=== PATIENT | male | born 1985 | race Two or more races ===

== ENCOUNTER 2022-09-22 11:19 | Inpatient (IN) | payer MEDICAID ==
[~2022-09-22] VITALS: Ht 180.3 cm; Wt 114.8 kg
[2022-09-22] MEDS ORDERED: ONDANSETRON HCL/PF 4 MG/2 ML VIAL IVP PRN (14:30)
[2022-09-22] MEDS ORDERED: MAG HYDROX/AL HYDROX/SIMETH 30 ML UDC PO PRN (14:30)
[2022-09-22] MEDS ORDERED: Z GUARD REMEDY 4 OZ OINT TP PRN (14:30)
[2022-09-22] MEDS ORDERED: MAGNESIUM HYDROXIDE 30 ML UDC PO PRN (14:30)
[2022-09-22] MEDS ORDERED: MORPHINE SULFATE INJ 2 MG/ML DISP.SYRIN IV PRN (14:30)
--- NOTE | 2022-09-22 14:50 | NUR ---
RN ADMITTING NOTES ADMITTED A 37 YR/ OLD MALE VIA GURNEY FROM [facility]. ADMITTING DIAGNOSIS IS CHOLECYSTITIS WITH CHOLELITHIASIS. A/O X 4. ON MODERATE HIGH BACK REST POSITION. BREATHING EVENLY AND UNLABORED. WITH IV ACCESS AT LEFT AC #20G SL. HISTORY TAKEN AND RECORDED, PHYSICAL EXAMINATION DONE, NO SKIN ISSUES. PATIENT ORIENTED TO THE UNIT POLICY, PATIENT HAS NO COVID 19 VACCINE. ON ROOM AIR SATURATING WELL. KEPT BED ON LOWER LOCKED POSITION, KEPT SIDE RAILS UP X 2 ALL THE TIME, KEPT CALL LIGHT WITHIN AT REACH, SAFETY PRECAUTIONS MAINTAIN, WILL CONTINUE TO MONITOR
--- NOTE | 2022-09-22 16:55 | NUR ---
RN NOTES PATIENT COMPLAINED OF RIGHT ABDOMINAL PAIN. RATE PAIN 8/10. PATIENT ASKED FOR PAIN MEDICINE. MORPHINE 1MG GIVEN. WILL CONTINUE TO MONITOR PATIENT.
[2022-09-22] MEDS ORDERED: PIPERACILLIN /TAZOBACTAM 4.5 G in IV D5W 50 ML IV SCH (18:00)
[2022-09-22] MEDS: IV D5/0.45 NACL 1,000 ML IV PRN ×2 (18:24→18:28)
[2022-09-22] MEDS: ZOSYN IVPB 3.375 G in IV D5W 50ml IV SCH ×2 (18:38→23:47)
--- NOTE | 2022-09-22 18:58 | NUR ---
RN CLOSING NOTES PATIENT AWAKE IN BED, A/O X 4. ON MODERATE HIGH BACK REST POSITION. BREATHING EVENLY AND UNLABORED. WITH IV ACCESS AT LEFT AC #20G WITH D5 1/2 NS @125ML/HR. ON ROOM AIR SATURATING WELL. NO COMPLAINT OF PAIN OR DISCOMFORT AT THIS TIME. KEPT BED ON LOWER LOCKED POSITION, KEPT SIDE RAILS UP X 2 ALL THE TIME, KEPT CALL LIGHT WITHIN REACH, SAFETY PRECAUTIONS MAINTAIN, WILL ENDORSE TO TELEPHONE INSTRUMENT SUPERVISOR NURSE FOR MATTHEW.
--- NOTE | 2022-09-22 19:40 | NUR ---
RN OPENING NOTE PATIENT AWAKE IN BED, A/O X 4. NO RESPIRATORY DISTRESS, BREATHING EVENLY AND UNLABORED. WITH IV ACCESS TO LEFT AC #20G WITH NS INFUSING @ 125ML/HR. ON ROOM AIR, TOLERATING RA WELL. NO COMPLAINT OF PAIN OR DISCOMFORT AT THIS TIME. SAFETY MEASURES MAINTAINED: BED IN LOWEST LOCKED POSITION, SIDE RAILS UP X 2, CALL LIGHT WITHIN REACH. WILL CONTINUE TO MONITOR PATIENT.
[2022-09-22 20:00] VITALS: BP 138/90
[2022-09-23 05:52] LABS: BASOPHILS % (AUTO) 0.2 % (0.0-2.0); EOSINOPHILS % (AUTO) 2.8 % (0.0-6.0); HEMATOCRIT 45 % (39-51); LYMPHOCYTES # (AUTO) 3.1 K/uL (0.8-4.8); LYMPHOCYTES % (AUTO) 39.5 % (20.0-44.0); MEAN CORPUSCULAR HGB CONC 33 g/dl (31.0-36.0); MEAN CORPUSCULAR VOLUME 88 fL (80-96); MONOCYTES # (AUTO) 0.9 K/uL (0.1-1.30); MONOCYTES % (AUTO) 11.9 % (2.0-12.0); NEUTROPHILS # (AUTO) 3.6 K/uL (1.8-8.9); NEUTROPHILS % (AUTO) 45.6 % (43.0-81.0); PLATELET COUNT (AUTO) 246 K/uL (150-450); RED BLOOD CELL COUNT(AUTO) 5.12 MIL/uL (4.5-6.0); WHITE BLOOD COUNT (AUTO) 7.9 K/uL (4.3-11.0)
[2022-09-23 06:11] LABS: ALBUMIN 3.4 g/dL (3.4-5.0); BILIRUBIN,TOTAL 0.7 mg/dL (0.2-1.0); CALCIUM, SERUM 8.8 mg/dL (8.5-10.1); PHOSPHORUS 3.8 mg/dL (2.5-4.9); POTASSIUM 3.6 mmol/L (3.5-5.1); TOTAL PROTEIN, SERUM 6.8 g/dL (6.4-8.2)
[2022-09-23] MEDS: ZOSYN IVPB 3.375 G in IV D5W 50ml IV SCH ×3 (06:27→17:35)
--- NOTE | 2022-09-23 06:40 | NUR ---
RN CLOSING NOTE LEFT PATIENT SLEEPING IN BED, A/O X 4. NO RESPIRATORY DISTRESS, BREATHING EVENLY AND UNLABORED. WITH IV ACCESS TO LEFT AC #20G WITH D5 1/2 NS INFUSING @ 125ML/HR. ON ROOM AIR, TOLERATING RA WELL. NO COMPLAINT OF PAIN OR DISCOMFORT AT THIS TIME. SAFETY MEASURES MAINTAINED: BED IN LOWEST LOCKED POSITION, SIDE RAILS UP X 2, CALL LIGHT WITHIN REACH. WILL ENDORSE PATIENT TO AM SHIFT NURSE FOR MATTHEW.
--- NOTE | 2022-09-23 07:30 | NUR ---
HEAT SET OPERATOR Opening Note Received patient on bed, awake, A/O x4. On RA. IV access LAC #20G. Safety measure maintained, bed in low, locked, siderails up x2, call light at reach. Will continue to monitor patient.
[2022-09-23 08:23] VITALS: BP 139/82
[2022-09-23] MEDS ORDERED: PANTOPRAZOLE 40 MG VIAL IV SCH (09:00)
[2022-09-23] MEDS: ACETAMINOPHEN 325 MG TABLET PO PRN (12:16)
[2022-09-23 16:10] VITALS: BP 118/81
--- NOTE | 2022-09-23 17:30 | NUR ---
RN NOTE Surgery consult done for patient, per JADEN العلي, patient doesn't want to get surgery and will just do dietary changes. Dr. Jacobson notified, he will discharge patient in AM.
--- NOTE | 2022-09-23 19:18 | NUR ---
HEAD GOLF PROFESSIONAL Closing Note Received patient on bed, awake, A/O x4. On RA. IV access LAC #20G. Safety measure maintained, bed in low, locked, side rails up x2, call light at reach. Will endorse to next shift nurse to monitor patient.
--- NOTE | 2022-09-23 19:56 | NUR ---
MS NEEDLE LOOM SETTER INITIAL NORES Received report from am nurse and seen patient in bed watching TV at this time and I introduce myself as his nurse for tonight . Denies any pain or any discomfort at this time. He still refusing to have operation at this time, he states he just watch his diet and do some exercise . He only request for now is to get him something to read like books or magazine because he doesn't like to watch TV. Heplock on his left AC patent and intact. Kept him warm and comfortable at all times. I also told him I will try if i can get him something to read and patient states "thank you ".
[2022-09-23 20:00] VITALS: BP 133/93
[2022-09-24] MEDS: ZOSYN IVPB 3.375 G in IV D5W 50ml IV SCH ×2 (00:12→06:24)
--- NOTE | 2022-09-24 07:20 | NUR ---
MS RN OPENING NOTE RECEIVED PATIENT AWAKE IN BED, A/O X 4. NO RESPIRATORY DISTRESS, BREATHING EVENLY AND UNLABORED. WITH IV ACCESS TO LEFT AC #20G ON SALINE LOCK, PATENT AND INTACT. ON ROOM AIR, TOLERATING RA WELL. NO COMPLAINT OF PAIN OR DISCOMFORT AT THIS TIME. ABLE TO TOLERATE DINNER LAST NIGHT ON CLEAR LIQUIDS. SAFETY MEASURES MAINTAINED: BED IN LOWEST LOCKED POSITION, SIDE RAILS UP X 2, CALL LIGHT WITHIN REACH. WILL CONTINUE WITH PLAN OF CARE.
--- NOTE | 2022-09-24 07:28 | NUR ---
MS DATA LEAD CLOSING NOTES PT WOKE UP AND STABLE THROUGHOUT THE NIGHT , DENIES ANY PAIN OR ANY DISCOMFORT. NO N/V WELL. ALL DUE MEDS GIVEN WELL. KEPT HIM WARM AND COMFORTABLE AT ALL TIMES. PLACE CALL LIGHT AT REACH. ENDORSE TO AM NURSE.
--- NOTE | 2022-09-24 08:30 | NUR ---
MS RN NOTE SEEN BY EVGENY BROWNE WITH ORDER FOR DISCHARGE. HEALTH TEACHING DONE REGARDING DISCHARGE ORDER AND DISCHARGE INSTRUCTIONS. AWAITING FINAL ORDERS FROM MD. WILL CONTINUE WITH PLAN OF CARE.
[2022-09-24] MEDS: ACETAMINOPHEN 325 MG TABLET PO PRN (08:59)
[2022-09-24] MEDS ORDERED: PANTOPRAZOLE 40 MG/PACK PACK PO SCH (09:00)
[2022-09-24] MEDS ORDERED: LEVO500T90 PO (11:18)
[2022-09-24] MEDS ORDERED: METR500T PO (11:18)
--- NOTE | 2022-09-24 12:00 | NUR ---
MS RN NOTE PATIENT DISCHARGED ORDERED. VERBALIZED UNDERSTANDING AND APPRECIATION. IV ACCESS REMOVED AND COVERED WITH DRY DRESSING, TOLERATED WELL. PATIENT REFUSED BODY CHECK AND TO BE WHEELED TO LOBBY. PATIENT DISCHARGED ORDERED. IN STABLE CONDITION.
== END 2022-09-24 12:00 | disposition home or self-care (01) ==
LOC: MED 14:23
PROVIDERS: ADMIT Internal Medicine; ATTEND Internal Medicine
DX: K80.10 Calculus of gallbladder with chronic cholecystitis without obstruction (principal); D72.829 Elevated white blood cell count, unspecified; E66.9 Obesity, unspecified; Z53.20 Procedure and treatment not carried out because of patient's decision for unspecified reasons; Z68.35 Body mass index [BMI] 35.0-35.9, adult
CPT/HCPCS: 36415; 71045-TC; 74181-TC; 80053-TC; 83735-TC; 84100-TC; 85025-TC; 87081-TC; A4223; C9113; G0378; J2270; J2543; J3490; J7060

== ENCOUNTER 2022-09-27 19:42 | Inpatient (IN) | payer MEDICAID ==
[~2022-09-27] VITALS: Ht 182.9 cm; Wt 114.8 kg
[~2022-09-27 19:42] MED LIST: LEVO500T90 PO; METR500T PO
--- NOTE | 2022-09-27 20:47 | NUR ---
BIBFAMILY FROM HOME C/O ABD PAIN X1 DAYS. D/C [facility] FOR GALLSTONES 2 DAYS AGO ON ATB PO FLAGYL & LEVOFLOXACIN. AMBULATORY, PLACED IN BED, AAOX4, IN PAIN 10/ PS
[2022-09-27] MEDS ORDERED: ONDANSETRON HCL/PF 4 MG/2 ML VIAL IVP ONE (21:00)
[2022-09-27] MEDS ORDERED: MORPHINE SULFATE INJ 2 MG/ML DISP.SYRIN IV ONE (21:00)
[2022-09-27] MEDS ORDERED: IV NS 0.9% 1,000 ML BAG IV ONE (21:00)
[2022-09-27] MEDS ORDERED: ONDANSETRON HCL/PF 4 MG/2 ML VIAL ONE (21:05)
[2022-09-27] MEDS ORDERED: MORPHINE SULFATE INJ 4 MG/ML DISP.SYRIN ONE (21:06)
--- NOTE | 2022-09-27 21:15 | NUR ---
BLOOD DRAWN AND SENT TO LAB
[2022-09-27 21:24] LABS: BASOPHILS # (AUTO) 0.1 K/uL (0.0-0.2); EOSINOPHILS % (AUTO) 1.6 % (0.0-6.0); HEMATOCRIT 48 % (39-51); HEMOGLOBIN 16.4 g/dL (13.5-17.5); LYMPHOCYTES # (AUTO) 3.4 K/uL (0.8-4.8); LYMPHOCYTES % (AUTO) 35.3 % (20.0-44.0); MEAN CORPUSCULAR HGB CONC 34 g/dl (31.0-36.0); MEAN CORPUSCULAR VOLUME 87 fL (80-96); MONOCYTES # (AUTO) 0.9 K/uL (0.1-1.30); MONOCYTES % (AUTO) 9.2 % (2.0-12.0); NEUTROPHILS % (AUTO) 52.9 % (43.0-81.0); PLATELET COUNT (AUTO) 323 K/uL (150-450); RED BLOOD CELL COUNT(AUTO) 5.49 MIL/uL (4.5-6.0); WHITE BLOOD COUNT (AUTO) 9.5 K/uL (4.3-11.0)
[2022-09-27 21:31] LABS: CALCIUM, SERUM 9.8 mg/dL (8.5-10.1); CREATININE 1.2 mg/dL (0.6-1.3); POTASSIUM 3.8 mmol/L (3.5-5.1)
--- NOTE | 2022-09-27 21:34 | NUR ---
Ml escamilla in [facility] - 09/27/22 at 2224 by DAMARIS [id number] SENT TO [facility]
[2022-09-27 21:37] LABS: ALBUMIN 4.3 g/dL (3.4-5.0); BILIRUBIN,DIRECT 0.1 mg/dL (0.0-0.2); BILIRUBIN,TOTAL 0.4 mg/dL (0.2-1.0); TOTAL PROTEIN, SERUM 8.2 g/dL (6.4-8.2)
[2022-09-27] MEDS ORDERED: HYDROMORPHONE 1 MG/1 ML DISP.SYRIN ONE (21:49)
[2022-09-27] MEDS ORDERED: HYDROMORPHONE 1 MG/1 ML DISP.SYRIN IV ONE (22:00)
--- NOTE | 2022-09-27 22:01 | NUR ---
EDY PINTO (SISTER)
--- NOTE | 2022-09-27 22:17 | NUR ---
COVID ANTIGEN AND MRSA SWAB COLLECTED AND SENT TO LAB.
[2022-09-27] MEDS ORDERED: ACETAMINOPHEN 325 MG TABLET PO PRN (23:30)
[2022-09-27] MEDS ORDERED: MAGNESIUM HYDROXIDE 30 ML UDC PO PRN (23:30)
[2022-09-27] MEDS ORDERED: ONDANSETRON HCL/PF 4 MG/2 ML VIAL IVP PRN (23:30)
[2022-09-27] MEDS ORDERED: Z GUARD REMEDY 4 OZ OINT TP PRN (23:30)
--- NOTE | 2022-09-27 23:32 | NUR ---
RM [id number]
--- NOTE | 2022-09-27 23:57 | NUR ---
CALLED FOR REPORT RN NOT AVAILABLE AND WILL CALL BACK
--- NOTE | 2022-09-28 00:02 | NUR ---
REPORT GIVEN TO AUDREY HUGHES FOR MATTHEW
--- NOTE | 2022-09-28 00:03 | NUR ---
URINE SAMPLE COLLECTED AND SENT TO LAB.
--- NOTE | 2022-09-28 00:13 | NUR ---
PT TRANSPORTED TO [facility] VIA WHEELCHAIR IN STABLE CONDITION
[2022-09-28 00:19] VITALS: BP 120/91
[2022-09-28] MEDS: IV D5/ 0.9% NACL 1,000 ML IV PRN ×2 (00:19→14:19)
--- NOTE | 2022-09-28 00:30 | NUR ---
MS BRANNER MACHINE TENDER NOTE PATIENT ARRIVED ON UNIT, ALERT/ORIENTED X 4, PT ABLE TO MAKE NEEDS KNOWN. PATIENT DENIES PAIN AT THIS TIME. PATIENT ADMITTED HER A COUPLE DAYS AGO FOR GALLSTONES BUT REFUSED SURGERY AT THAT TIME, NOW BACK WITH ABDOMINAL PAIN AND WANTING SURGERY. PATIENT STABLE ON RA, NO S/S OF DISTRESS OR SOB NOTED, BREATHING EVEN AND UNLABORED. IV ACCESS ON RAC #20G INTACT AND FLUSHING WELL, CONNECTED PATIENT TO IVF D5NS @ 75 ML/HR PER ORDER. NOTIFIED PATIENT HE'S NPO AND PT VERBALIZED UNDERSTANDING. BELONGINGS DOCUMENT AND SHEET PLACED IN CHART. PATIENT REFUSED TO CHANGE INTO HOSPITAL GOWN, WANTS TO STAY IN OWN CLOTHING. ORIENTED PATIENT TO ROOM AND HOW TO USE CALL LIGHT. PATIENT AMBULATORY WITH STEADY GAIT. SAFETY MEASURES IN PLACE: CALL LIGHT WITHIN REACH, SIDE RAILS UP X 2, BED LOCKED IN LOWEST POSITION. WILL CONTINUE TO MONITOR PATIENT
[2022-09-28 00:46] LABS: BILIRUBIN,URINE NEGATIVE (NEGATIVE); COLOR,URINE YELLOW (YELLOW); LEUKOCYTE ESTERASE ,URINE TRACE (NEGATIVE); NITRITE, URINE NEGATIVE (NEGATIVE); PH,URINE 5.5 (5.0-8.0); PROTEIN,URINE NEGATIVE (NEGATIVE); UGLUCOSE NEGATIVE (NEGATIVE); UROBILINOGEN,URINE 0.2 EU/dL (0.2)
[2022-09-28 01:12] LABS: BACTERIA,URINE None seen /HPF (None Seen); CALCIUM OXALATE CRYSTALS,UR Moderate /HPF (None Seen); RBC,URINE NONE SEEN /HPF (0-2); SQUAMOUS EPITHELIAL CELL,UR None Seen /HPF (None Seen); WBC,URINE 0-2 /HPF (0-3)
[2022-09-28 06:19] LABS: ALBUMIN 3.5 g/dL (3.4-5.0); BILIRUBIN,TOTAL 0.4 mg/dL (0.2-1.0); CALCIUM, SERUM 8.8 mg/dL (8.5-10.1); CREATININE 0.9 mg/dL (0.6-1.3); MAGNESIUM 2.3 mg/dL (1.8-2.4); PHOSPHORUS 3.6 mg/dL (2.5-4.9); POTASSIUM 3.7 mmol/L (3.5-5.1); TOTAL PROTEIN, SERUM 6.8 g/dL (6.4-8.2)
[2022-09-28 07:00] VITALS: BP 126/81
--- NOTE | 2022-09-28 07:05 | NUR ---
MS RN CLOSING NOTE PATIENT AWAKE IN BED, ALERT/ORIENTED X 4, PT ABLE TO MAKE NEEDS KNOWN. PATIENT STABLE ON RA, NO S/S OF DISTRESS OR SOB NOTED, BREATHING EVEN AND UNLABORED. PATIENT C/O OF HEADACHE, HOWEVER NPO SO CAN'T GIVE TYLENOL, PROVIDED PATIENT WITH ICE BAG FOR HEAD. IV ACCESS ON RAC #20G INTACT AND INFUSING D5NS @ 75 ML/HR. PATIENT NEEDS MET THROUGHOUT SHIFT. SAFETY MEASURES IN PLACE: CALL LIGHT WITHIN REACH, SIDE RAILS UP X 2, BED LOCKED IN LOWEST POSITION, WILL ENDORSE TO DAYSHIFT RN FOR CONTINUITY OF CARE
--- NOTE | 2022-09-28 07:23 | NUR ---
RN OPENING NOTE RECEIVED PATIENT IN BED, AWAKE, A/O X4, VERBALLY RESPONSIVE AND ABLE TO MAKE NEEDS KNOWN. NO SIGNS OF ACUTE DISTRESS NOTED. ON ROOM AIR, NO SOB NOTED, BREATHING EVEN AND UNLABORED. NOTED WITH RIGHT AC #20G, INTACT AND PATENT, SALINE LOCKED. PATIENT ON NPO AT THIS TIME. SAFETY MEASURE IN PLACE. BED IN LOW AND LOCKED POSITION. SIDE RAILS UP X2, CALL LIGHT PLACED WITHIN EASY REACH. WILL CONTINUE TO MONITOR PATIENT. Addendum: 09/28/22 at 0945 by BRYAN AHUJA RN *PATIENT WITH IV FLUIDS OF D5NS INFUSING @75ML/HR.
[2022-09-28] MEDS: MORPHINE SULFATE INJ 2 MG/ML DISP.SYRIN IV PRN (08:22)
[2022-09-28] MEDS ORDERED: PANTOPRAZOLE 40 MG VIAL IV SCH (09:00)
[2022-09-28] MEDS: ZOSYN IVPB 3.375 G in IV D5W 50ml IV SCH ×3 (11:43→23:28)
--- NOTE | 2022-09-28 12:45 | NUR ---
RN NOTE SEEN AND EXAMINED BY REHABILITATION CASEWORKER GEORGE GRAY FOR SX CONSULT.
[2022-09-28 16:00] VITALS: BP 126/75
--- NOTE | 2022-09-28 18:54 | NUR ---
RN CLOSING NOTE PATIENT IN BED, AWAKE, A/O X4, VERBALLY RESPONSIVE AND ABLE TO MAKE NEEDS KNOWN. NO SIGNS OF ACUTE DISTRESS NOTED. REMAINS STABLE ON ROOM AIR, NO SOB NOTED, BREATHING EVEN AND UNLABORED. WITH RIGHT AC #20G, INTACT AND PATENT, PATIENT REQUESTED TO HOLD IVF FOR NOW. PATIENT ABLE TO EAT DINNER WITH NO C/O ABDOMINAL PAIN. SAFETY MEASURE MAINTAINED. BED IN LOW AND LOCKED POSITION. SIDE RAILS UP X2, CALL LIGHT PLACED WITHIN EASY REACH. WILL ENDORSE TO NEXT SHIFT FOR CONTINUITY OF CARE.
--- NOTE | 2022-09-28 19:30 | NUR ---
MS RN OPENING NOTE RECEIVED PATIENT FROM AM NURSE; PATIENT AWAKE IN BED, A/O X 4, ABLE TO MAKE NEEDS KNOWN; STABLE ON ROOM AIR, BREATHING EVENLY AND NO S/S OF DISTRESS NOTED; WITH IV ACCESS AT RIGHT AC G#20, INTACT AND PATENT, PATIENT REQUESTED TO HOLD IV FLUIDS; ENCOURAGED VERBALIZATION OF NEEDS; SAFETY MEASURES IMPLEMENTED, BED LOCKED IN LOWEST POSITION, SIDE RAILS UP X 2, CALL LIGHT AND TABLE WITHIN REACH; WILL CONTINUE TO MONITOR THROUGHOUT SHIFT
[2022-09-28 20:00] VITALS: BP 137/90
[2022-09-29] MEDS: ZOSYN IVPB 3.375 G in IV D5W 50ml IV SCH ×3 (05:54→18:06)
[2022-09-29 06:15] LABS: BASOPHILS % (AUTO) 0.3 % (0.0-2.0); EOSINOPHILS % (AUTO) 2.8 % (0.0-6.0); HEMATOCRIT 45 % (39-51); HEMOGLOBIN 15.2 g/dL (13.5-17.5); LYMPHOCYTES # (AUTO) 2.5 K/uL (0.8-4.8); LYMPHOCYTES % (AUTO) 32.1 % (20.0-44.0); MEAN CORPUSCULAR HGB CONC 34 g/dl (31.0-36.0); MEAN CORPUSCULAR VOLUME 88 fL (80-96); MONOCYTES # (AUTO) 0.7 K/uL (0.1-1.30); MONOCYTES % (AUTO) 8.5 % (2.0-12.0); NEUTROPHILS # (AUTO) 4.4 K/uL (1.8-8.9); NEUTROPHILS % (AUTO) 56.3 % (43.0-81.0); PLATELET COUNT (AUTO) 252 K/uL (150-450); RED BLOOD CELL COUNT(AUTO) 5.11 MIL/uL (4.5-6.0); WHITE BLOOD COUNT (AUTO) 7.8 K/uL (4.3-11.0)
[2022-09-29 06:34] LABS: CALCIUM, SERUM 9.1 mg/dL (8.5-10.1); CREATININE 0.9 mg/dL (0.6-1.3); POTASSIUM 3.9 mmol/L (3.5-5.1)
--- NOTE | 2022-09-29 06:53 | NUR ---
MS RN CLOSING NOTE PATIENT AWAKE IN BED, A/O X 4, ABLE TO MAKE NEEDS KNOWN; STABLE ON ROOM AIR, BREATHING EVENLY AND NO S/S OF DISTRESS NOTED; WITH IV ACCESS AT RIGHT AC G#20, INTACT AND PATENT, PATIENT REFUSED TO HOOK IV FLUIDS; ADMINISTERED MEDICATIONS PRESCRIBED; PATIENT'S NEEDS ATTENDED; MONITORED PATIENT ACCORDINGLY; SAFETY MEASURES IMPLEMENTED, BED LOCKED IN LOWEST POSITION, SIDE RAILS UP X 2, CALL LIGHT AND TABLE WITHIN REACH; WILL ENDORSE TO AM NURSE FOR MATTHEW.
--- NOTE | 2022-09-29 07:45 | NUR ---
MS RN OPENING NOTE RECEIVED PATIENT AWAKE IN BED, A/O X 4, ABLE TO MAKE NEEDS KNOWN; STABLE ON ROOM AIR, BREATHING EVENLY AND NO S/S OF DISTRESS NOTED; WITH IV ACCESS AT RIGHT AC G#20, INTACT AND PATENT, PATIENT REQUESTED TO HOLD IV FLUIDS, ENCOURAGED VERBALIZATION OF NEEDS; SAFETY MEASURES IMPLEMENTED, BED LOCKED IN LOWEST POSITION, SIDE RAILS UP X 2, CALL LIGHT AND TABLE WITHIN REACH; WILL CONTINUE TO MONITOR PATIENT THROUGHOUT SHIFT.
[2022-09-29 08:00] VITALS: BP 130/80
--- NOTE | 2022-09-29 08:00 | NUR ---
RN NOTE PATIENT REQUESTED TO HOLD IV FLUIDS. REFUSED IV FLUIDS AT THIS TIME. WILL CONTINUE TO MONITOR PATIENT.
[2022-09-29] MEDS: PANTOPRAZOLE 40 MG TABLET.DR PO SCH (08:27)
--- NOTE | 2022-09-29 15:53 | NUR ---
RN NOTE PATIENT COMPLAINED OF LOWER BACK PAIN. RATE PAIN 3/10. TYLENOL 650MG GIVEN. WILL CONTINUE TO MONITOR PATIENT.
[2022-09-29 17:42] VITALS: BP 139/99
--- NOTE | 2022-09-29 17:56 | NUR ---
RN NOTES PATIENT COMPLAINED OF FEELING NAUSEOUS AND ASKED FOR MEDICINE. ZOFRAN 4MG PRN GIVEN. WILL CONTINUE TO MONITOR PATIENT.
[2022-09-29] MEDS: MORPHINE SULFATE INJ 2 MG/ML DISP.SYRIN IV PRN ×2 (18:02→21:28)
--- NOTE | 2022-09-29 18:07 | NUR ---
RN NOTES PATIENT COMPLAINED OF SEVERE UPPER ABDOMINAL PAIN. RATE 10/10. MORPHINE 4MG PRN GIVEN. WILL CONTINUE TO MONITOR PATIENT.
--- NOTE | 2022-09-29 18:44 | NUR ---
MS RN CLOSING NOTE PATIENT AWAKE IN BED, A/O X 4, ABLE TO MAKE NEEDS KNOWN, STABLE ON ROOM AIR, BREATHING EVENLY AND NO S/S OF DISTRESS NOTED, WITH IV ACCESS AT RIGHT AC G#20, INTACT AND PATENT, PATIENT REFUSED TO HOOK IV FLUIDS, ADMINISTERED MEDICATIONS PRESCRIBED, PATIENT'S NEEDS ATTENDED, MONITORED PATIENT ACCORDINGLY, SAFETY MEASURES IMPLEMENTED, BED LOCKED IN LOWEST POSITION, SIDE RAILS UP X 2, CALL LIGHT AND TABLE WITHIN REACH; WILL ENDORSE TO THE CAGE TENDER NURSE FOR MATTHEW.
--- NOTE | 2022-09-29 19:35 | NUR ---
MS RN NOTES RECEIVED SITTING ON EDGE OF BED,A/O X4,AMBULATE WITH STEADY GAIT.WITH IVF HUNG BUT REFUSED.RIGHT AC SALINE LOCK INTACT AND PATENT.WILL MONITOR FOR ABDOMINAL PAIN.CALL LIGHT IN REACH,NEEDS ANTICIPATED.
[2022-09-29 20:00] VITALS: BP 131/85
--- NOTE | 2022-09-29 21:28 | NUR ---
MS RN NOTES C/O ABDOMINAL PAIN 10-10 ON PAIN SCALE,CANT WAIT FOR ANOTHER HOUR FOR HEI PAIN MEDS.MEDICATED WITH MORPHINE 4MG IV ORDERED.VITAL SIGNS STABLE.
[2022-09-30] MEDS: ZOSYN IVPB 3.375 G in IV D5W 50ml IV SCH ×5 (00:36→23:12)
--- NOTE | 2022-09-30 06:17 | NUR ---
MS RN NOTES STILL REFUSING IVF.ALL DUE ABX INFUSED WITHOUT ADVERSE REACTION NOTED.PAIN MANAGEMENT EFFECTIVE.NO DISTRESS.CALL LIGHT REACH,NEEDS ATTENDED
[2022-09-30 07:00] VITALS: BP 124/74
--- NOTE | 2022-09-30 07:08 | NUR ---
MS RN OPENING NOTE RECEIVED PATIENT AWAKE IN BED, A/O X 4, ABLE TO MAKE NEEDS KNOWN; STABLE ON ROOM AIR, BREATHING EVENLY AND NO S/S OF DISTRESS NOTED; NO PAIN AT THIS TIME, WITH IV ACCESS AT RIGHT AC G#20, INTACT AND PATENT, PATIENT REFUSED IV FLUIDS, ENCOURAGED VERBALIZATION OF NEEDS; SAFETY MEASURES IMPLEMENTED, BED LOCKED IN LOWEST POSITION, SIDE RAILS UP X 2, CALL LIGHT AND TABLE WITHIN REACH; WILL CONTINUE TO MONITOR PATIENT THROUGHOUT SHIFT.
[2022-09-30] MEDS: PANTOPRAZOLE 40 MG TABLET.DR PO SCH ×2 (08:19→08:52)
--- NOTE | 2022-09-30 08:52 | NUR ---
RN NOTES PATIENT ACCIDENTALLY DROPPED THE MEDICINE PANTOPAZOLE 40MG ON THE FLOOR. CALLED THE PHARMACY AND SPOKE TO JASPER, SHE TOLD ME THAT SHE ALREADY RE ENTER THE MEDICATION. TOOK ANOTHER PANTOPAZOLE IN [place] AND GAVE IT TO PATIENT.
[2022-09-30 16:45] VITALS: BP 118/68
--- NOTE | 2022-09-30 18:22 | NUR ---
MS RN CLOSING NOTE PATIENT AWAKE IN BED, A/O X 4, ABLE TO MAKE NEEDS KNOWN, STABLE ON ROOM AIR, BREATHING EVENLY AND NO S/S OF DISTRESS NOTED, WITH IV ACCESS AT RIGHT AC G#20, INTACT AND PATENT, PATIENT REFUSED TO HOOK IV FLUIDS, ADMINISTERED MEDICATIONS PRESCRIBED, PATIENT'S NEEDS ATTENDED, MONITORED PATIENT ACCORDINGLY, SAFETY MEASURES IMPLEMENTED, BED LOCKED IN LOWEST POSITION, SIDE RAILS UP X 2, CALL LIGHT AND TABLE WITHIN REACH; WILL ENDORSE TO THE SILVERWARE SUPERVISOR NURSE FOR MATTHEW.
[2022-09-30 19:53] VITALS: BP 121/81
[2022-09-30] MEDS: MORPHINE SULFATE INJ 2 MG/ML DISP.SYRIN IV PRN (21:02)
--- NOTE | 2022-09-30 21:03 | NUR ---
ABDOMEN PAIN Patient ambulated to the bathroom, back to bed, c/o abdomen pain 8/10 described as sharp aching pain mid abdomen. Morphine IV given, indication possible side effect educated, patient verbalized understanding. Will reassess pain level.
[2022-10-01] MEDS: ZOSYN IVPB 3.375 G in IV D5W 50ml IV SCH ×3 (05:48→17:22)
--- NOTE | 2022-10-01 06:50 | NUR ---
END OF SHIFT REPORT Patient is A/O x4, Oxygen sat high 90's in RA. Given abx as scheduled with no adverse side effect. Afebrile during the night. Patient refuses IVF infusion, stated "I dont need it right now, might be before surgery" Declined education. IV line Right AC intact. Abdomen pain resolved with IV Morphine. Denies N/V. Plan for possible surgery on Mon or Sat. Will endorse to oncoming RN.
[2022-10-01 08:00] VITALS: BP 131/83
[2022-10-01] MEDS: PANTOPRAZOLE 40 MG TABLET.DR PO SCH (09:35)
--- NOTE | 2022-10-01 18:55 | NUR ---
MS RN CLOSING NOTE PATIENT AWAKE IN BED, A/O X 4, ABLE TO MAKE NEEDS KNOWN, STABLE ON ROOM AIR, BREATHING EVENLY AND NO S/S OF DISTRESS NOTED, WITH IV ACCESS AT RIGHT AC G#20, INTACT AND PATENT, PATIENT REFUSED TO HOOK IV FLUIDS, HOWEVER COMPLIANT WITH IV MEDICATIONS. ADMINISTERED MEDICATIONS PRESCRIBED, PATIENT'S NEEDS ATTENDED, MONITORED PATIENT ACCORDINGLY, SAFETY MEASURES IMPLEMENTED, BED LOCKED IN LOWEST POSITION, SIDE RAILS UP X 2, CALL LIGHT AND TABLE WITHIN REACH; WILL ENDORSE TO PM SHIFT NURSE FOR MATTHEW
--- NOTE | 2022-10-01 19:26 | NUR ---
MS CHERIE INITIAL NOTES Received report from Am nurse and seen patient in bed awake and alert watching TV at this time, No signs of any discomfort noted. He also denies any pain at this time, no N/V noted as well. Pt refused to infused the IVF at this time. He asking what time is his schedule for surgery . I talked to him that as of now We don't have the schedule yet but I will let him know. Pt. understood well. Kept him warm and comfortable at all times. place call light at reach. Will continue monitoring.
[2022-10-01 20:00] VITALS: BP 138/80
--- NOTE | 2022-10-02 | NUR ---
ms kehinde notes zosyn IVP bag hung by another nurse as ordered. Pt still NPO for surgery at 5pm. patient is aware. will continue monitoring.
[2022-10-02] MEDS: ZOSYN IVPB 3.375 G in IV D5W 50ml IV SCH ×4 (00:24→19:20)
--- NOTE | 2022-10-02 07:15 | NUR ---
MS MUD GRINDER CLOSING NOTES PT AWAKE AND ALERT STILL WITH IVF INFUSING AT THIS TIME. I SPOKE TO THE PATIENT REGARDING THE CONSENT AND PT UNDERSTOOD WELL AND SIGNED IT. ALL DUE MEDS GIVEN AND ALL NEEDS MET. NO SIGNS OF ANY DISCOMFORT NOTED. KEPT HIM WARM AND COMFORTABLE AT ALL TIMES. WILL ENDORSE TO AM NURSE FOR CONTINUITY OF CARE. PLACE CALL LIGHT AT REACH.
--- NOTE | 2022-10-02 07:30 | NUR ---
MS RN OPENING NOTE RECEIVED PATIENT AWAKE IN BED, A/O X 4, ABLE TO MAKE NEEDS KNOWN; STABLE ON ROOM AIR, BREATHING EVEN AND UNLABORED. NO S/S OF DISTRESS NOTED; NO PAIN AT THIS TIME, WITH IV ACCESS AT RAC G#20 WITH RUNNING D5NS AT 75 ML/HOUR INFUSING WELL. SAFETY MEASURES IMPLEMENTED, BED LOCKED IN LOWEST POSITION, SIDE RAILS UP X 2, CALL LIGHT AND TABLE WITHIN REACH; WILL CONTINUE TO MONITOR PATIENT THROUGHOUT SHIFT.
[2022-10-02 08:00] VITALS: BP 127/81
[2022-10-02] MEDS: PANTOPRAZOLE 40 MG TABLET.DR PO SCH (09:00)
[2022-10-02] MEDS ORDERED: LIDOCAINE 1% INJ 50 ML MDV IJ ONE (14:05)
[2022-10-02] MEDS ORDERED: BUPIVACAINE 0.5 % PF 150 MG/30 ML VIAL ONE (14:05)
[2022-10-02] MEDS ORDERED: BUPIVACAINE MPF 0.5% W/EPI INJ 30 ML VIAL ONE (14:06)
--- NOTE | 2022-10-02 15:15 | NUR ---
RN NOTE PATIENT NOT IN ROOM. PATIENT WAS TAKEN TO OR VIA GURNEY. NO SIGNS OF DISTRESS NOTED. CHARGE NURSE AWARE.
[2022-10-02 15:51] VITALS: BP 133/92
[2022-10-02] MEDS ORDERED: FENTANYL PF 250MCG/5ML AMPUL ONE (16:55)
[2022-10-02] MEDS ORDERED: HYDROMORPHONE INJ 2 MG/ML DISP.SYRIN ONE (16:55)
[2022-10-02] MEDS ORDERED: MIDAZOLAM HCL 2 MG/2ML VIAL ONE (16:56)
[2022-10-02] MEDS ORDERED: FAMOTIDINE/PF INJ 20 MG/2 ML VIAL IV ONE (16:56)
[2022-10-02] MEDS ORDERED: ROCURONIUM BROMIDE 50 MG/5 ML ONE (16:57)
[2022-10-02] MEDS: GABAPENTIN 100 MG CAPSULE PO SCH (17:00)
--- NOTE | 2022-10-02 19:34 | NUR ---
MS RN CLOSING NOTE PATIENT ARRIVED FROM THE OPERATING ROOM VIA GURNEY. PATIENT IS AWAKE IN BED, A/O X4. ON ROOM AIR, NO S/S OF DISTRESS AND NO SOB NOTED. ABLE TO MAKE NEEDS KNOWN. PATIENT TOLERATED PROCEDURE WELL. NO PAIN NOTED AT THIS TIME. VITAL SIGNS CHECKED AND RECORDED POST OP. ALL DUE MEDICATIONS ADMINISTERED. ALL NEEDS ATTENDED AND ANTICIPATED. FALL AND SAFETY PRECAUTION IN PLACE: BED LOCKED AND AT THE LOWEST POSITION, SIDE RAILS UP X2, CALL LIGHT WITHIN REACH. WILL ENDORSE TO PHOTOENGRAVER NURSE.
--- NOTE | 2022-10-02 19:38 | NUR ---
RN OPENING NOTE; RECEIVED PT IN BED AWAKED AOX4 ABLE TO MAKE NEEDS KNOWN,ON RM AIR SAT 98% NO SOB/DISTRESS NOTED,IV ACCESS RAC 20G INTACT AND PATENT,SP LAPAROSCOPIC CHOLECYSTECTOMY NO BLEEDING ON SITE,NO COMPLAIN OF PAIN AT THIS TIME,SAFETY MEASURE IN PLACE,CALL LIGHT WITHIN REACH,WILL CONTINUE TO MONITOR.
[2022-10-02 19:57] VITALS: BP 138/91
[2022-10-02 20:00] VITALS: BP 133/85
[2022-10-02] MEDS: MORPHINE SULFATE INJ 2 MG/ML DISP.SYRIN IV PRN (20:21)
--- NOTE | 2022-10-02 20:28 | NUR ---
RN NOTE; PATIENT COMPLAINED RIGHT ABDOMINAL PAIN 9/,PRN MORPHINE 4MG IV WAS GIVEN,NO A/R NOTED.
[2022-10-03] MEDS: ZOSYN IVPB 3.375 G in IV D5W 50ml IV SCH ×3 (00:11→11:22)
[2022-10-03] MEDS: MORPHINE SULFATE INJ 2 MG/ML DISP.SYRIN IV PRN (05:50)
--- NOTE | 2022-10-03 05:50 | NUR ---
RN NOTE; PATIENT COMPLAINED RIGHT ABDOMINAL PAIN 9/,PRN MORPHINE 4MG IV WAS GIVEN,NO A/R NOTED.
--- NOTE | 2022-10-03 06:27 | NUR ---
RN CLOSING NOTE; PATIENT IN BED AWAKED AOX4 ,ABLE TO MAKE NEEDS KNOWN,ON RM AIR SAT 99% NO SOB/DISTRESS NOTED,IV ACCESS RAC 20G INTACT AND PATENT,SP LAPAROSCOPIC CHOLECYSTECTOMY NO BLEEDING ON SITE,COMPLAIN OF PAIN AT LOWER ABDOMEN PRN MORPHINE WAS GIVEN,SAFETY MEASURE IN PLACE,CALL LIGHT WITHIN REACH,WILL ENDORSED TO NEXT SHIFT.
[2022-10-03 07:00] VITALS: BP 138/87
--- NOTE | 2022-10-03 07:43 | NUR ---
MS RN OPENING NOTE RECEIVED PATIENT AWAKE, ALERT/ORIENTEDX 4, NO COMPLAIN OF PAIN, S/P LAPAROSCOPIC CHOLECYSTECTOMY, CURRENT DIET CLEAR LIQUID TOLERATED, NO NAUSEA & VOMITING, NO ABDOMINAL DISTENTION. SKIN INTACT. TOLERATED AMBULATION. WILL CONTINUE TO MONITOR AND WITH THE PLAN OF CARE
[2022-10-03] MEDS: GABAPENTIN 100 MG CAPSULE PO SCH (08:26)
[2022-10-03] MEDS: PANTOPRAZOLE 40 MG TABLET.DR PO SCH (08:27)
--- NOTE | 2022-10-03 12:02 | NUR ---
MS RN NOTE SEEN AND EXAMINED BY HOSPITALIST SARINA WITH ORDER OF DISCHARGE. PATIENT INSTRUCTIONS AND EDUCATION FOR DISCHARGE PROVIDED AND PATIENT VERBALIZED UNDERSTANDING AND APPRECIATION.
--- NOTE | 2022-10-03 12:10 | NUR ---
MS RN NOTE PATIENT DIET ADVANCED TO SOFT DIET. ABLE TO TOLERATE DIET. NO COMPLAIN OF PAIN OR DISCOMFORT. ABLE TO HAVE BOWEL MOVEMENT. NOT IN DISTRESS.
--- NOTE | 2022-10-03 12:51 | NUR ---
MS RN NOTE DISCHARGED PATIENT ORDERED. IV ACCESS REMOVED AND COVERED WITH DRY DRESSING. TOLERATED WELL. HEALTH TEACHING REINFORCED REGARDING DISCHARGE AND DISCHARGE ORDERS. VERBALIZED UNDERSTANDING AND APPRECIATION. PATIENT ACCOMPANIED TO ELEVATOR. REFUSED TO VE ACCOMPANIED TO LOBBY. PATIENT PICKED UP BY FRIEND. NOT IN DISTRESS.
== END 2022-10-03 12:50 | disposition home or self-care (01) | DRG 263 ==
LOC: ER 19:47 → MED 23:44
PROVIDERS: ADMIT Nurse Practitioner Family; ATTEND Nurse Practitioner Family
PROC: 0FT44ZZ Resection of Gallbladder, Percutaneous Endoscopic Approach (ICD-10-PCS; principal; 2022-10-02)
PROC: 0FB04ZX Excision of Liver, Percutaneous Endoscopic Approach, Diagnostic (ICD-10-PCS; principal; 2022-10-02)
DX: K80.10 Calculus of gallbladder with chronic cholecystitis without obstruction (principal); K76.0 Fatty (change of) liver, not elsewhere classified; E66.9 Obesity, unspecified; Z20.822 Contact with and (suspected) exposure to COVID-19; K76.9 Liver disease, unspecified; Z91.013 Allergy to seafood
CPT/HCPCS: 36415; 71045-TC; 76705-TC; 80048-TC; 80053-TC; 80061-TC; 80076-TC; 81001; 83690-TC; 83735-TC; 84100-TC; 85025-TC; 85610-TC; 87081-TC; 88304-TC; 88307-TC; 88313-TC; A4223; C9113; C9803; G0378; J0690; J1100; J1170; J1885; J2250; J2270; J2405; J2543; J2704; J2765; J3010; J3490; J7030; J7042; J7050; J7060